=== PATIENT | female | born 1970 | race Caucasian/White ===

== ENCOUNTER 2021-03-26 06:11 | Inpatient (IN) ==
[~2021-03-26 06:11] MED LIST: Acetaminophen IV 1,000 MG/100 ML BAG IVPB ONE; Famotidine 20 MG/2 ML VIAL IVP ONE; Scopolamine Patch 1.5 MG PATCH.TD72 TD ONE
[2021-03-26] MEDS ORDERED: CeFAZolin Syr 2,000MG/20 ML 2,000 MG/20 ML SYRINGE IVPB ONE (06:34)
[2021-03-26] MEDS ORDERED: Ringers Solution, Lactated 1,000 ML IVC SCH (06:45)
[2021-03-26] MEDS ORDERED: *HR* Midazolam HCl 2 MG/2 ML VIAL ONE (07:07)
[2021-03-26] MEDS ORDERED: *HR* FentaNYL (PF) 100 MCG/2 ML VIAL ONE (07:07)
[2021-03-26] MEDS ORDERED: *HR* Propofol 200 MG/20 ML VIAL IVP ONE (07:07)
[2021-03-26] MEDS ORDERED: Bupivacaine-MPF 0.25% 10 ML VIAL ONE (07:15)
[2021-03-26] MEDS ORDERED: CefOXitin 1,000 MG VIAL ONE (07:15)
[2021-03-26] MEDS ORDERED: Lidocaine HCL 4 ML Topical Solution (Laryng-O-Jet Kit Sterile Pak) TP ONE (07:21)
[2021-03-26] MEDS ORDERED: Lidocaine -MPF 2% 2 ML VIAL ONE (07:21)
[2021-03-26] MEDS ORDERED: *HR* Rocuronium Bromide 50 MG/5 ML VIAL ONE (07:21)
[2021-03-26] MEDS ORDERED: Ondansetron 4 MG/2 ML VIAL ONE (07:21)
[2021-03-26] MEDS ORDERED: *HR* Phenylephrine 10 MG/ML VIAL ONE (07:21)
[2021-03-26] MEDS ORDERED: Ondansetron 4 MG/2 ML VIAL IVP PRN ×2 (07:26→10:33)
[2021-03-26] MEDS ORDERED: Albuterol 2.5 MG/3 ML NEBULIZER IH PRN (07:26)
[2021-03-26] MEDS ORDERED: Naloxone 0.4 MG/ML INJ IVP PRN ×2 (07:26→10:33)
[2021-03-26] MEDS ORDERED: Nitroglycerin 0.4 MG TAB.SUBL SL PRN (07:26)
[2021-03-26] MEDS ORDERED: *HR* FentaNYL (PF) 100 MCG/2 ML VIAL IVP PRN (07:26)
[2021-03-26] MEDS ORDERED: *HR* HYDROmorphone (PF) 1 MG/ML SYRINGE IVP PRN (07:26)
[2021-03-26] MEDS ORDERED: cefOXitin 1,000 MG, Sodium Chloride IRRigation 1,000 ML IR ONE (07:45)
[2021-03-26 08:26] LABS: Basophils % 0.5 %; Eosinophils # 0.2 K/mcL (0.0-0.6); Eosinophils % 2.9 %; Hematocrit 38.5 % (35.3-44.9); Hemoglobin 12.5 g/dL (11.5-15.4); Immature Granulocytes % 0.2 % (0-4); Lymphocytes # 2.4 K/mcL (0.6-4.6); Lymphocytes % 38.8 %; Mean Corpuscular HGB Conc 32.5 g/dL (31.6-35.5); Mean Corpuscular Hemoglobin 28.5 pg (28.0-33.3); Mean Corpuscular Volume 87.7 fL (83.0-100.0); Mean Platelet Volume 9.2 fL (9.4-12.4); Monocytes # 0.6 K/mcL (0.0-1.3); Monocytes % 9.2 %; Platelet Count 176 K/mcL (140-400); Red Blood Count 4.39 M/mcL (3.82-4.97); Red Cell Distribution Width 13.6 % (11.5-14.5); Segmented Neutrophils % 48.4 %; White Blood Count 6.2 K/mcL (4.3-11.1)
[2021-03-26] MEDS ORDERED: EPHEDrine 50 MG/ML VIAL ONE (08:37)
[2021-03-26 08:46] LABS: BUN/Creatinine Ratio 21 (6-26); Blood Urea Nitrogen 20 mg/dL (6-20); Calcium 9.1 mg/dL (8.6-10.3); Carbon Dioxide 29 mEq/L (23-29); Chloride 104 mEq/L (98-107); Glucose 124 mg/dL (70-105); Osmolality,Calculated 294 (280-300); Potassium 3.8 mEq/L (3.5-5.1); Sodium 140 mEq/L (136-145); eGFR For African Americans > 60 (> 60); eGFR For Non-African Americans > 60 (> 60)
[2021-03-26] MEDS ORDERED: Sugammadex Sodium 200 MG/2 ML VIAL IV ONE (09:16)
[2021-03-26] MEDS ORDERED: *HR* HYDROMORPHONE 2 MG/ML VIAL ONE (09:21)
[2021-03-26] MEDS: *HR* OxyCODONE Immed Rel 5 MG TABLET PO PRN ×2 (14:49→21:43)
[2021-03-26] MEDS: 0.9 % Sodium Chloride 1,000 ML IVC SCH (16:31)
[2021-03-26] MEDS: *HR* Metformin 500 MG TABLET PO SCH (21:43)
[2021-03-27] MEDS: *HR* HYDROcodone/Acet 5/325 mg TABLET PO PRN ×2 (00:53→13:41)
[2021-03-27] MEDS: 0.9 % Sodium Chloride 1,000 ML IVC SCH (00:53)
[2021-03-27 03:06] LABS: Basophils % 0.1 %; Hematocrit 35.3 % (35.3-44.9); Hemoglobin 11.4 g/dL (11.5-15.4); Immature Granulocytes % 0.6 % (0-4); Lymphocytes # 1.1 K/mcL (0.6-4.6); Lymphocytes % 9.2 %; Mean Corpuscular HGB Conc 32.3 g/dL (31.6-35.5); Mean Corpuscular Hemoglobin 28.6 pg (28.0-33.3); Mean Corpuscular Volume 88.7 fL (83.0-100.0); Mean Platelet Volume 9.3 fL (9.4-12.4); Monocytes # 1.1 K/mcL (0.0-1.3); Monocytes % 8.9 %; Platelet Count 173 K/mcL (140-400); Red Blood Count 3.98 M/mcL (3.82-4.97); Red Cell Distribution Width 13.8 % (11.5-14.5); Segmented Neutrophils % 81.2 %
[2021-03-27 03:08] LABS: White Blood Count 12.3 K/mcL (4.3-11.1)
[2021-03-27 03:32] LABS: BUN/Creatinine Ratio 20 (6-26); Blood Urea Nitrogen 19 mg/dL (6-20); Calcium 8.4 mg/dL (8.6-10.3); Carbon Dioxide 22 mEq/L (23-29); Chloride 104 mEq/L (98-107); Glucose 136 mg/dL (70-105); Osmolality,Calculated 278 (280-300); Potassium 5.1 mEq/L (3.5-5.1); Sodium 132 mEq/L (136-145); eGFR For African Americans > 60 (> 60); eGFR For Non-African Americans > 60 (> 60)
[2021-03-27] MEDS: hydroCHLOROthiazide 25 MG TABLET PO SCH (07:50)
[2021-03-27] MEDS: Valsartan 80 MG TABLET PO SCH (07:50)
[2021-03-27] MEDS: *HR* Metformin 500 MG TABLET PO SCH ×2 (07:51→20:51)
[2021-03-27] MEDS: *HR* OxyCODONE Immed Rel 5 MG TABLET PO PRN ×2 (08:00→18:43)
[2021-03-27] MEDS ORDERED: levoFLOXacin 500 MG/100 ML 500 MG/100 ML BAG IVPB SCH (09:00)
[2021-03-27] MEDS ORDERED: *HR* Promethazine 25 MG/ML VIAL IM PRN (23:57)
[2021-03-27] MEDS ORDERED: Ondansetron 4 MG/2 ML VIAL IVP PRN (23:57)
[2021-03-28] MEDS: *HR* HYDROcodone/Acet 5/325 mg TABLET PO PRN ×3 (00:08→20:23)
[2021-03-28] MEDS ORDERED: Bisacodyl 10 MG RECTAL SUPPOSITORY RC PRN (07:15)
[2021-03-28] MEDS: hydroCHLOROthiazide 25 MG TABLET PO SCH (10:02)
[2021-03-28] MEDS: Valsartan 80 MG TABLET PO SCH (10:02)
[2021-03-28] MEDS: *HR* Metformin 500 MG TABLET PO SCH ×2 (10:02→20:23)
[2021-03-28] MEDS: 0.9 % Sodium Chloride 1,000 ML IVC SCH ×3 (10:03→23:27)
[2021-03-29] MEDS: *HR* HYDROcodone/Acet 5/325 mg TABLET PO PRN ×3 (00:21→14:36)
[2021-03-29] MEDS: hydroCHLOROthiazide 25 MG TABLET PO SCH (08:56)
[2021-03-29] MEDS: Valsartan 80 MG TABLET PO SCH (08:57)
[2021-03-29] MEDS: *HR* Metformin 500 MG TABLET PO SCH (08:57)
[2021-03-29] MEDS ORDERED: polyethylene glycoL 3350 17 GM POWD.PACK PO SCH (11:45)
[2021-03-29] MEDS ORDERED: 0.9 % Sodium Chloride 1,000 ML ONE (13:00)
[2021-03-29] MEDS ORDERED: 0.9 % Sodium Chloride 1,000 ML IVC SCH (13:00)
[2021-03-29 15:45] VITALS: BP 136/70; PULSE 66; TEMP 98.1; O2SAT 96
[2021-03-29] MEDS ORDERED: Acetaminophen 325 MG TABLET PO PRN (17:28)
== END 2021-03-29 18:03 | disposition home or self-care (01) | DRG 660 ==
LOC: SAMDAY 06:11 → 3NENU 10:30 → 3ANU 03-29 15:38
PROVIDERS: ADMIT Urology; ATTEND Urology